=== PATIENT | male | born 2005 | race Two or more races ===

== ENCOUNTER 2025-02-21 09:06 | Emergency (ER) | payer OTHER ==
[~2025-02-21] VITALS: Ht 175.3 cm; Wt 72.1 kg
[2025-02-21 09:41] VITALS: TEMP 98.1
[2025-02-21 10:57] LABS: PLATELET COUNT (AUTO) 256 K/uL (150-450); RED BLOOD CELL COUNT(AUTO) 5.35 MIL/uL (4.50-5.90); RED CELL DISTRIBUTION WIDTH 12.7 % (11.5-14.5); WHITE BLOOD COUNT (AUTO) 7.8 K/uL (4.5-11.0)
[2025-02-21 11:02] LABS: CALCIUM, TOTAL 9.4 mg/dL (8.8-10.5); CREATININE 0.98 mg/dL (0.60-1.30); GLOMERULAR FILTR. RATE CALC > 60 mL/min (>60); GLUCOSE,RANDOM 102 mg/dL (70-110); SODIUM SERUM 135 mmol/L (136-145); UREA NITROGEN, BLOOD 8 mg/dL (7-18)
[2025-02-21 12:00] VITALS: BP 125/71; PULSE 81; RESP 16; O2SAT 97
== END 2025-02-21 13:04 | disposition home or self-care (01) ==
LOC: EMS 09:06
DX: Z00.00 Encounter for general adult medical examination without abnormal findings (principal); R10.9 Unspecified abdominal pain
CPT/HCPCS: 74176; 80048; 85025; 99284